=== PATIENT | female | born 1965 | race African-American/Black ===

== ENCOUNTER 2020-10-14 11:21 | Inpatient (IN) | payer OTHER ==
[~2020-10-14] VITALS: Ht 172.7 cm; Wt 95.9 kg
[2020-10-14] MEDS ORDERED: SODIUM CHLORIDE 0.9% 1,000 ML IVB ONE (11:45)
[2020-10-14 12:15] LABS: Basophils # (auto) 0 10 ^3/uL (0-0.2); Basophils % (auto) 0.6 % (0.0-2.0); Eosinophils # (auto) 0.1 10 ^3/uL (0-0.8); Eosinophils % (auto) 2.9 % (0.0-7.0); Hematocrit 37.2 % (36.0-46.0); Hemoglobin 12.8 g/dL (12.2-16.2); Lymphocytes # (auto) 0.7 10 ^3/uL (0.4-5.4); Lymphocytes % (auto) 24.3 % (10.0-50.0); Mean Corpuscular Hemoglobin 27.6 pg (28.0-32.0); Mean Corpuscular Hgb Conc. 34.5 g/dL (32.0-36.0); Mean Corpuscular Volume 79.9 fL (80.0-100.0); Monocytes # (auto) 0.3 10 ^3/uL (0-1.3); Monocytes % (auto) 10.1 % (0.0-12.0); Neutrophils # (auto) 1.8 10 ^3/uL (1.6-8.6); Neutrophils % (auto) 62.1 % (37.0-80.0); Nucleated Red Blood Cells % 0.2 %; Red Blood Cells 4.66 10^6/uL (4.0-5.20); Red Cell Distribution Width 13.7 % (11.8-14.3)
[2020-10-14 12:32] LABS: Albumin 3.4 g/dL (3.4-5.0); Anion Gap 6 (5-15); Blood Urea Nitrogen 15 mg/dL (7-18); Calcium 8.7 mg/dL (8.5-10.1); Carbon Dioxide 25 mmol/L (21-32); Chloride 110 mmol/L (98-107); Glucose 91 mg/dL (74-106); Magnesium 2.2 mg/dL (1.6-2.6); Sodium 141 mmol/L (136-145)
[2020-10-14 12:38] LABS: Alanine Aminotransferase 38 U/L (13-56); Alkaline Phosphatase 68 U/L (45-117); Aspartate Aminotransferase 22 U/L (15-37); BUN/Creatinine Ratio 15.8; Bilirubin, Total 0.6 mg/dL (0.2-1.0); GFR African American 79 mL/min; GFR Non-African American 65 mL/min; Total Protein 8.2 g/dL (6.4-8.2)
[2020-10-14] MEDS ORDERED: ONDANSETRON HCL 4 MG/2 ML VIAL IV ONE (12:45)
[2020-10-14] MEDS ORDERED: MORPHINE SULF INJ 2 MG/ML SYRINGE 1ML IV ONE (12:45)
[2020-10-14] MEDS ORDERED: ASPirin-EC 81 mg tab PO ONE (15:00)
[2020-10-14 15:04] LABS: INR 1.04 (0.9-1.15); Partial Thromboplastin Time 27.1 sec (23.0-31.2)
[2020-10-14] MEDS ORDERED: MORPHINE SULF INJ 2 MG/ML SYRINGE 1ML IV PRN ×2 (18:30)
[2020-10-14] MEDS ORDERED: ACETAMINOPHEN 500 MG TAB PO PRN (18:30)
[2020-10-14] MEDS ORDERED: NITROGLYCERIN 0.4 MG SL TAB SL PRN (18:30)
[2020-10-14] MEDS ORDERED: ONDANSETRON HCL 4 MG/2 ML VIAL IV PRN (18:30)
[2020-10-14] MEDS: HYDROcodone-ACET 5/325MG TAB PO PRN (20:55)
[2020-10-15 05:00] VITALS: BP 123/69
[2020-10-15] MEDS: HYDROcodone-ACET 5/325MG TAB PO PRN ×3 (05:33→16:45)
[2020-10-15 09:00] VITALS: BP 101/55
[2020-10-15] MEDS: FAMOTIDINE 20 MG TAB PO SCH (10:53)
[2020-10-15 13:00] VITALS: BP 106/65
[2020-10-15] MEDS ORDERED: LORazepam 2MG/ML-1ML VIAL IV ONE (14:00)
[2020-10-15 17:13] VITALS: BP 124/65
[2020-10-15 22:00] VITALS: BP 116/70
[2020-10-15] MEDS ORDERED: ATORVASTATIN 20 MG TAB PO SCH (22:00)
[2020-10-16] VITALS (8 sets, daily range): BP systolic 110–133; BP diastolic 66–76
[2020-10-16 06:48] LABS: Basophils # (auto) 0 10 ^3/uL (0-0.2); Basophils % (auto) 0.6 % (0.0-2.0); Eosinophils # (auto) 0.1 10 ^3/uL (0-0.8); Eosinophils % (auto) 2.9 % (0.0-7.0); Hematocrit 34.3 % (36.0-46.0); Hemoglobin 12.3 g/dL (12.2-16.2); Lymphocytes # (auto) 0.8 10 ^3/uL (0.4-5.4); Lymphocytes % (auto) 20.6 % (10.0-50.0); Mean Corpuscular Hemoglobin 28.7 pg (28.0-32.0); Mean Corpuscular Volume 79.8 fL (80.0-100.0); Monocytes # (auto) 0.5 10 ^3/uL (0-1.3); Monocytes % (auto) 12.5 % (0.0-12.0); Neutrophils # (auto) 2.4 10 ^3/uL (1.6-8.6); Neutrophils % (auto) 63.4 % (37.0-80.0); Nucleated Red Blood Cells % 0.1 %; Red Cell Distribution Width 13.4 % (11.8-14.3); White Blood Cell 3.8 10^3/uL (4.4-10.8)
[2020-10-16 07:27] LABS: Potassium 4.4 mmol/L (3.5-5.1)
[2020-10-16 07:42] LABS: BUN/Creatinine Ratio 13.2; Calcium 8.7 mg/dL (8.5-10.1); Magnesium 2.3 mg/dL (1.6-2.6)
[2020-10-16] MEDS: FAMOTIDINE 20 MG TAB PO SCH (09:53)
[2020-10-16] MEDS ORDERED: ASPirin-EC 81 mg tab PO SCH (10:00)
== END 2020-10-16 21:16 | disposition home or self-care (01) | DRG 58 ==
LOC: ER 11:21 → TELE 18:25 → TELE-CENTR 20:14
PROVIDERS: ADMIT Nurse Practitioner Acute Care; ATTEND Internal Medicine
DX: R20.2 Paresthesia of skin (principal); K50.90 Crohn's disease, unspecified, without complications; M79.602 Pain in left arm; R55 Syncope and collapse; E66.9 Obesity, unspecified; F41.9 Anxiety disorder, unspecified; F32.9 Major depressive disorder, single episode, unspecified; Z20.822 Contact with and (suspected) exposure to COVID-19; E78.5 Hyperlipidemia, unspecified; Z68.31 Body mass index [BMI] 31.0-31.9, adult; Z81.8 Family history of other mental and behavioral disorders; Z82.3 Family history of stroke; Z82.49 Family history of ischemic heart disease and other diseases of the circulatory system; Z90.710 Acquired absence of both cervix and uterus
CPT/HCPCS: 36415; 70450; 70551; 71045; 71275; 80048; 80053; 80061; 83735; 84443; 84484; 85025; 85049; 85379; 85610; 85652; 85730; 87426; 93005; 93306; 93886; 96361; 96374; 96375; 97163; G0378; J2405